=== PATIENT | female | born 2005 | race Hispanic/Latino ===

== ENCOUNTER 2025-02-22 04:45 | Emergency (ER) | payer SELFPAY ==
[~2025-02-22] VITALS: Ht 165.1 cm; Wt 138.4 kg
--- NOTE | 2025-02-22 05:24 | ERN ---
General Chief Complaint: Abdominal Pain Stated Complaint: ABD PAIN Time Seen by MD: 05:23 History of Present Illness Initial Comments 13-year-old obese female complaining of substernal burning constant abdominal pain. She took some HEB gastric pain medication which did not help and comes to the emergency room. No other symptoms. Allergies: Coded Allergies: No Known Drug Allergies (Unverified Allergy, Unknown, 02/22/25) Past Medical History Past Medical History: No Pertinent History Past Surgical History: None Constitutional: (-) chills, (-) diaphoresis, (-) fever, (-) malaise, (-) weakness, (-) other documentation EENTM: (-) eye pain, (-) blurred vision, (-) tearing, (-) double vision, (-) ear pain, (-) ear discharge, (-) nose pain, (-) nose congestion, (-) throat pain, (-) Throat swelling, (-) mouth pain, (-) tooth pain, (-) mouth swelling, (-) other documentation Respiratory: (-) cough, (-) orthopnea, (-) short of breath, (-) stridor, (-) wheezing, (-) other documentation Cardiovascular: (-) chest pain, (-) edema, (-) palpitations, (-) syncope, (-) dyspnea on exertion, (-) other documentation Gastrointestinal/Abdominal: (+) nausea Genitourinary: (-) vaginal discharge, (-) vaginal bleeding, (-) dysuria, (-) frequency, (-) hematuria, (-) pain, (-) other documentation Musculoskeletal: (-) Neck pain, (-) back pain, (-) Flank Pain, (-) joint pain, (-) joint swelling, (-) muscle pain, (-) muscle stiffness, (-) gout, (-) other documentation Skin: (-) laceration, (-) contusion, (-) abrasion, (-) abscess, (-) rash, (-) change in color, (-) change in hair, (-) change in nails, (-) diaphoresis, (-) dryness, (-) other documentation Physical Exam General Appearance: (+) no apparent distress Orientation: (+) oriented x 3 Head/Face Trauma: No Eye: bilateral eye normal inspection, bilateral eye PERRL, bilateral eye EOMI Ear, Nose, Throat: (+) hearing grossly normal Neck: (+) normal inspection, (+) supple, (+) full range of motion Respiratory: (+) chest non-tender, (+) lungs clear Heart: (+) regular, (+) no gallop Vascular: (+) no edema, (+) normal peripheral pulse Gastrointestinal: (+) soft, (+) no organomegaly, (+) bowel sound present MDM Patient's symptoms sound like simple gastritis. We will start the workup with a GI cocktail and go from there. After drinking the GI cocktail patient's pain is much better and she would like to go home. ED Course Orders Procedure Category Date Status Time Lidocaine Hcl 2% PHA 02/22/25 Complete Viscous (Lidocaine Hcl 05:30 Mag/Alum/Simeth 30ml PHA 02/22/25 Complete (Maalox Plus 30ml) 05:30 Dicyclomine Hcl PHA 02/22/25 Complete (Bentyl 10mg/5ml 05:30 Current Medications Medications (Trade) Dose Ordered Sig/Jasmeet Route PRN Reason Start Time Stop Time Status Last Admin Dose Admin Al Hydroxide/Mg Hydroxide (MAALox PLUS 30ML) 30 ml ONCE ONCE PO 02/22/25 05:30 02/22/25 05:40 DC 02/22/25 05:44 Dicyclomine HCl (Bentyl 10mg/5ml Syrup) 10 mg ONCE ONCE PO 02/22/25 05:30 02/22/25 05:40 DC 02/22/25 05:44 Lidocaine HCl (Lidocaine HCl 2% Viscous) 10 ml ONCE ONCE PO 02/22/25 05:30 02/22/25 05:40 DC 02/22/25 05:44 Vital Signs Date Time Temp Pulse Resp B/P (MAP) Pulse Ox O2 Delivery O2 Flow Rate FiO2 02/22/25 06:23 98.1 62 16 145/86 100 Room Air* 0 21 02/22/25 05:05 98.2 67 18 148/82 100 Room Air* 0 21 02/22/25 04:48 98.4 72 18 99 Room Air 0 DX & DISP Disposition: Discharge Departure Impression: Primary Impression: Gastritis Condition: Stable Scripts Famotidine (Zantac-360 (Famotidine)) 20 Mg Tablet 20 MG PO nightly PRN for gerd for 30 Days, #30 TAB Prov: ROSALBA GUEVARA MD 02/22/25 Additional Instructions: It seems you have acid reflux as your symptoms were relieved with the GI cocktail we provided. I have given you a prescription for Zantac please take one tablet at night. You will need to talk to your primary care physician about getting tested for Helicobacter pylori infection and also a prescription for acid reflux. Referrals: SELF,REFERRAL (PCP) ROSALBA GUEVARA MD Feb 22, 2025 05:23
[2025-02-22] MEDS: DICYCLOMINE HCL 10 MG/5 ML ML PO ONE (05:44)
[2025-02-22] MEDS: MAG/ALUM/SIMETH 30 ML UDCUP PO ONE (05:44)
[2025-02-22] MEDS: LIDOCAINE HCL 2% VISCOUS 15 ML UDCUP PO ONE (05:44)
[2025-02-22 06:23] VITALS: BP 145/86; PULSE 62; RESP 16; TEMP 98; O2SAT 100
[2025-02-22] MEDS ORDERED: [UNRECOGNIZED DRUG - CODE] PO (06:28)
== END 2025-02-22 06:44 | disposition home or self-care (01) ==
LOC: EDH 04:45
DX: K29.70 Gastritis, unspecified, without bleeding (principal); E66.9 Obesity, unspecified
CPT/HCPCS: 99284